=== PATIENT | female | born 1955 | race Caucasian/White ===

== ENCOUNTER → 2017-04-17 | Day surgery (SDC) | payer BC ==
[~2017-04-17] MED LIST: ALEVE220 M1 PO; ALLEGRA PO; BENEFIBER; STOOL SOFT-STI1 EACH; ZYRTEC10 M1 PO; [UNRECOGNIZED DRUG - OTHER]
--- NOTE | ~2017-04-17 | OR ---
Unit #: [id number] #: [id number] Patient: SAMEER GUZMAN [id number] [address] [id number] MR#: [id number] NAME: SAMEER GUZMAN ROOM: Date of Procedure: 04/17/2017 Admission Date: 04/17/2017 Surgeon: Moises Coleman M.D. : 1955 Attending Physician: Moises Coleman M.D. Referring Physician: Moises Coleman M.D. Primary Care Physician: Summer Hernadez M.D. OPERATIVE REPORT PROCEDURE PERFORMED Esophagogastroduodenoscopy with biopsy. INDICATIONS FOR PROCEDURE The patient with dysphagia, choking sensation, undergoing evaluation with upper endoscopy. MEDICATIONS Monitored anesthesia. POSTOPERATIVE FINDINGS 1. Normal esophagus. 2. Mild gastritis. Biopsies were taken. 3. Normal duodenum and distal duodenum. PLAN PPI trial. Follow up in the office in six weeks. DESCRIPTION OF PROCEDURE The patient was explained of the procedure, risks, and benefits along with risks and benefits of anesthesia. She was brought to the endoscopy room. Propofol anesthesia was given. Bite block was placed. The scope was passed down the mouth and esophagus, stomach, duodenum, and distal duodenum. Findings as described. Biopsies were taken. Gently, I pulled it out of the patient's mouth. She tolerated it well. Dictated by... Liliana Mccoy/allan TD: 04/17/2017 17:47 JOB #: [id number] Unit #: [id number] #: [id number] Patient: SAMEER GUZMAN OPERATIVE REPORT Page 1 of 1 X Moises Coleman MD PROCEDURE OPERATIVE NOTE
== END | disposition home or self-care (01) ==
LOC: COPS 07:37
DX: K29.50 Unspecified chronic gastritis without bleeding (principal); K21.9 Gastro-esophageal reflux disease without esophagitis; F17.210 Nicotine dependence, cigarettes, uncomplicated; Z79.899 Other long term (current) drug therapy
CPT/HCPCS: 88305; 88312; J2250